=== PATIENT | male | born 1950 | race Caucasian/White ===

== ENCOUNTER → 2017-01-23 | Day surgery (SDC) | payer MEDICARE ==
[~2017-01-23] MED LIST: LACTATED RINGER'S 1000 ML INJ 1,000 ML ONE; PROPOFOL 200 MG/20 ML AMP IV ONE
--- NOTE | 2017-01-23 15:34 | GIPROC ---
[facility] [address] [facility], [address] EGD PROCEDURE REPORT EXAM DATE: 01/23/2017 PATIENT NAME: Fermín Lloyd MR #: [id number] BIRTHDATE: 1950 ATTENDING: Arcelia Smith MD ORDER #: [id number] FRONT DESK TEAM MEMBER: Kristi Mtz RN STATUS: outpatient INDICATIONS: The patient is a 66 yr old male here for an EGD due to obesity clearence for gastric bypass PROCEDURE PERFORMED: EGD w/ biopsy MEDICATIONS: None and Per Anesthesia. TOPICAL ANESTHETIC: none CONSENT: The patient understands the risks and benefits of the procedure and understands that these risks include, but are not limited to: sedation, allergic reaction, infection, perforation and/or bleeding. Alternative means of evaluation and treatment include, among others: physical exam, x-rays, and/or surgical intervention. The patient elects to proceed with this endoscopic procedure. medical equipment was checked for proper function. Hand hygiene and appropriate measures for infection prevention was taken. After the risks, benefits and alternatives of the procedure were thoroughly explained, Informed consent was verified, confirmed and timeout was successfully executed by the treatment team. The patient was anesthetized with topical anesthesia and the EC-[id number] ([id number]) and [id number] ([id number]) endoscope was introduced through the mouth and advanced to the second portion of the duodenum. Retroflexed views revealed a hiatal hernia The gastroscope was then slowly withdrawn and removed. Duodenitis /duodenla bulb-biopsy gastritis antrum-biopsy esophagitis distal esophagus -biopsy. ADVERSE EVENTS: There were no complications. IMPRESSIONS: 1. Duodenitis /duodenla bulb-biopsy gastritis antrum-biopsy esophagitis distal esophagus -biopsy 2. Retroflexed views revealed a hiatal hernia RECOMMENDATIONS: 1. Await biopsy results. Biopsy results will not be ready for 7-10 days. If you don't hear from us in two weeks, call our office for biopsy results. 2. Anti-reflux regimen 3. Continue PPI 4. Avoid NSAIDS 5. Ok for surgery from gi point PATIENT CONDITION: stable DISPOSITION: Home REPEAT EXAM: EGD pending biopsy results Arcelia Smith MD eSigned: Arcelia Smith MD 01/23/2017 3:34 PM cc: Rashida Holt [facility] Carol Mejia M.D. PATIENT NAME: Fermín Lloyd MR#: [id number]
== END | disposition home or self-care (01) ==
LOC: ESDC 11:35
PROVIDERS: ATTEND Internal Medicine Gastroenterology
DX: K29.70 Gastritis, unspecified, without bleeding (principal); K29.80 Duodenitis without bleeding; K44.9 Diaphragmatic hernia without obstruction or gangrene; K20.9 Esophagitis, unspecified
CPT/HCPCS: 00740; 43239; 88305; 88312; J3010; J7120

== ENCOUNTER 2017-04-01 07:30 | Inpatient (IN) | payer MEDICARE ==
[~2017-04-01] VITALS: Ht 182.9 cm; Wt 140.4 kg
[2017-04-01] MEDS ORDERED: ASPI-516 CHEW (09:20)
[2017-04-01] MEDS ORDERED: ATOR20TA15 PO (09:20)
[2017-04-01] MEDS ORDERED: FERR325T18 PO (09:20)
[2017-04-01] MEDS ORDERED: CANA100T PO (09:20)
[2017-04-01] MEDS ORDERED: LISI-515 PO (09:20)
[2017-04-01] MEDS ORDERED: FLUO40CA PO (09:20)
[2017-04-01] MEDS ORDERED: DIVA500T PO (09:20)
[2017-04-01] MEDS ORDERED: PANT40TA3 PO (09:20)
[2017-04-01] MEDS ORDERED: MECL-62 PO (09:20)
[2017-04-01] MEDS ORDERED: CYAN100025 SL (09:20)
[2017-04-01] MEDS ORDERED: METF1000 PO (09:20)
[2017-04-01] MEDS ORDERED: ZOFR4TAB PO (09:20)
[2017-04-01] MEDS ORDERED: BUPIVACAINE/EPINEPHRINE 0.25% PF 30 ML VIAL ONE (09:31)
[2017-04-01] MEDS ORDERED: SCOPOLAMINE 1.5 MG PATCH ONE (09:48)
[2017-04-01] MEDS ORDERED: APREPITANT 40 MG CAP ONE (09:49)
[2017-04-01] MEDS ORDERED: ONDANSETRON HCL 4 MG/2 ML VIAL ONE (09:49)
[2017-04-01] MEDS ORDERED: metroNIDAZOLE 500 MG INJ 100 ML IV ONE (09:49)
[2017-04-01] MEDS ORDERED: ACETAMINOPHEN 1000 MG/100 ML 100 ML IV ONE (09:49)
[2017-04-01] MEDS ORDERED: ceFAZolin 2 GM PREMIX 50 ML IV SCH (10:00)
[2017-04-01] MEDS ORDERED: APREPITANT 40 MG CAP PO SCH (10:00)
[2017-04-01] MEDS ORDERED: CHLORHEXIDINE GLUCONATE 2 % 1 PACK (2 CLOTHS) TOPICAL PRN (10:00)
[2017-04-01] MEDS ORDERED: LACTATED RINGER'S 1000 ML IV PRN (10:00)
[2017-04-01] MEDS ORDERED: ACETAMINOPHEN 1000 MG/100 ML 100 ML IV SCH (10:00)
[2017-04-01] MEDS ORDERED: INSULIN HUMAN REGULAR 1,000 UNITS/10 ML VIAL SQ PRN (10:00)
[2017-04-01] MEDS ORDERED: METOPROLOL TARTRATE 25 MG TAB PO PRN (10:00)
[2017-04-01] MEDS ORDERED: POVIDONE IODINE 5% (ANTISEPSIS KIT) 4 APPLICATIONS EACH NARE PRN (10:00)
[2017-04-01] MEDS ORDERED: SCOPOLAMINE 1.5 MG PATCH T-DERMAL SCH (10:00)
[2017-04-01] MEDS ORDERED: SODIUM CHLORID 0.9% 500 ML IV PRN (10:00)
[2017-04-01] MEDS ORDERED: metroNIDAZOLE 500 MG INJ 100 ML IV SCH (10:00)
[2017-04-01] MEDS ORDERED: ONDANSETRON HCL 4 MG/2 ML VIAL IV PUSH SCH (10:00)
[2017-04-01] MEDS ORDERED: DO NOT ADM ANY ANTICOAGULANT DRUGS PRN (14:45)
[2017-04-01] MEDS ORDERED: *morphine SULFATE 8 MG/ML PERIprocedure ONLY ONE (15:01)
[2017-04-01] MEDS ORDERED: MORPHINE SULFATE 30 MG/30 ML PCA IV SCH (15:15)
[2017-04-01] MEDS ORDERED: GLUCAGON 1 MG/ML VIAL OTHER PRN (15:15)
[2017-04-01] MEDS ORDERED: NALOXONE HCL 0.4 MG/ML AMP IV PUSH PRN (15:15)
[2017-04-01] MEDS ORDERED: diphenhydrAMINE HCL 50 MG/ML VIAL IV PUSH PRN (15:15)
[2017-04-01] MEDS ORDERED: Post-op Orders (for Pharmacy) MISC OTHER ONE (15:15)
[2017-04-01] MEDS ORDERED: ENALAPRILAT 1.25 MG/ML VIAL IV PUSH PRN (15:15)
[2017-04-01] MEDS ORDERED: SODIUM CHLORIDE 0.9% FLUSH 10 ML FLUSH IV FLUSH PRN (15:15)
[2017-04-01] MEDS ORDERED: DEXTROSE 50% IN WATER 50 ML VIAL(D50) IV PUSH PRN (15:15)
[2017-04-01] MEDS ORDERED: ONDANSETRON HCL 4 MG/2 ML VIAL IV PUSH PRN (15:15)
[2017-04-01] MEDS ORDERED: ACETAMINOPHEN/HYDROcodone 325 MG/10 MG TAB PO PRN (15:15)
[2017-04-01] MEDS ORDERED: diphenhydrAMINE HCL ELIXIR 12.5 MG/5 ML CUP PO PRN (15:15)
[2017-04-01] MEDS: 1/2 NS + KCL 20 MEQ INJ 1,000 ML IV SCH (16:00)
[2017-04-01] MEDS ORDERED: ACETAMINOPHEN 325MG/HYDROcodone 7.5MG/15ML UDC PO PRN (16:30)
[2017-04-01] MEDS: RESP: ALBUTEROL 2.5 MG/3 ML NEB (SCH) INH (16:55)
[2017-04-01] MEDS: METOCLOPRAMIDE HCL 10 MG/2 ML VIAL IV PUSH SCH ×2 (16:55→22:02)
[2017-04-01] MEDS: INSULIN NovoLIN REGULAR SUPPLEMENTAL SCALE SQ SCH ×2 (17:00→21:45)
[2017-04-01 17:44] VITALS: BP 147/81; PULSE 101; RESP 20; TEMP 97.8; O2SAT 97
[2017-04-01] MEDS: ENOXAPARIN SODIUM 40 MG/0.4 ML SYRINGE SQ SCH (19:25)
[2017-04-01 20:00] VITALS: BP 107/59; PULSE 89; RESP 22; TEMP 97.7; O2SAT 95
[2017-04-01] MEDS: SODIUM CHLORIDE 0.9% FLUSH 10 ML FLUSH IV FLUSH SCH (21:06)
[2017-04-01] MEDS: PCA - TOTAL MG MORPHINE DELIVERED PER SHIFT SCH (22:01)
[2017-04-02] VITALS (9 sets, daily range): BP systolic 120–143; BP diastolic 59–79; PULSE 76–92; RESP 16–22; TEMP 97.4–98.6; O2SAT 93–96
[2017-04-02] MEDS: RESP: ALBUTEROL 2.5 MG/3 ML NEB (SCH) INH ×7 (00:40→23:57)
[2017-04-02] MEDS: METOCLOPRAMIDE HCL 10 MG/2 ML VIAL IV PUSH SCH ×2 (04:32→10:10)
[2017-04-02] MEDS: PCA - TOTAL MG MORPHINE DELIVERED PER SHIFT SCH (06:29)
[2017-04-02 07:53] LABS: AUTOMATED NEUTROPHIL # 10.8 TH/MM3 (1.8-7.7); BASOPHIL % 0.1 % (0.0-2.0); HEMATOCRIT 37.9 % (39.0-51.0); HEMO FLAGS DIFF FINAL; LYMPH % 6.7 % (9.0-44.0); LYMPHOCYTE # 0.9 TH/MM3 (1.0-4.8); MEAN CELL VOLUME 89.1 FL (80.0-100.0); MEAN CORPUSCULAR HEMOGLOBIN 29.5 PG (27.0-34.0); MEAN CORPUSCULAR HGB CONC 33.1 % (32.0-36.0); MONO % 8.4 % (0.0-8.0); NEUT % 84.8 % (16.0-70.0); PLATELET COUNT 179 TH/MM3 (150-450); RED BLOOD COUNT 4.25 MIL/MM3 (4.50-5.90); RED CELL DISTRIBUTION WIDTH 14.8 % (11.6-17.2); WHITE BLOOD COUNT 12.7 TH/MM3 (4.0-11.0)
[2017-04-02] MEDS: PANTOPRAZOLE SOD 40 MG DELAYED RELEASE TAB PO SCH (08:12)
[2017-04-02] MEDS: INSULIN NovoLIN REGULAR SUPPLEMENTAL SCALE SQ SCH ×4 (08:12→19:56)
[2017-04-02] MEDS: SODIUM CHLORIDE 0.9% FLUSH 10 ML FLUSH IV FLUSH SCH ×2 (08:14→19:56)
[2017-04-02] MEDS: 1/2 NS + KCL 20 MEQ INJ 1,000 ML IV SCH ×3 (08:15→21:52)
[2017-04-02 08:30] LABS: BICARBONATE 23.8 MEQ/L (21.0-32.0); MAGNESIUM 1.6 MG/DL (1.5-2.5); POTASSIUM 4.3 MEQ/L (3.5-5.1)
[2017-04-02] MEDS: DIVALPROEX DR 500 MG TABEC PO SCH (10:10)
[2017-04-02] MEDS: LISINOPRIL 20 MG TAB PO SCH ×2 (10:10→19:58)
[2017-04-02] MEDS: ACETAMINOPHEN 325MG/HYDROcodone 7.5MG/15ML UDC PO PRN ×3 (10:19→22:21)
--- NOTE | 2017-04-02 14:13 | HHI.PR ---
Subjective Subjective Notes Ambulating the halls Pain and nausea well controlled Tolerating PO fluids Objective Vitals/I&O Vital Signs Date Time Temp Pulse Resp B/P (MAP) Pulse Ox O2 Delivery O2 Flow Rate FiO2 04/02/17 12:00 97.9 76 18 122/61 (81) 93 04/02/17 09:25 21 04/02/17 08:10 Room Air 04/02/17 00:44 2.00 Labs Laboratory Tests Test 04/02/17 07:28 White Blood Count 12.7 Red Blood Count 4.25 Hemoglobin 12.5 Hematocrit 37.9 Mean Corpuscular Volume 89.1 Mean Corpuscular Hemoglobin 29.5 Mean Corpuscular Hemoglobin Concent 33.1 Red Cell Distribution Width 14.8 Platelet Count 179 Mean Platelet Volume 8.4 Neutrophils (%) (Auto) 84.8 Lymphocytes (%) (Auto) 6.7 Monocytes (%) (Auto) 8.4 Eosinophils (%) (Auto) 0.0 Basophils (%) (Auto) 0.1 Neutrophils # (Auto) 10.8 Lymphocytes # (Auto) 0.9 Monocytes # (Auto) 1.1 Eosinophils # (Auto) 0.0 Basophils # (Auto) 0.0 CBC Comment DIFF FINAL Differential Comment Blood Urea Nitrogen 17 Creatinine 0.96 Random Glucose 122 Calcium Level 8.3 Magnesium Level 1.6 Sodium Level 136 Potassium Level 4.3 Chloride Level 103 Carbon Dioxide Level 23.8 Anion Gap 9 Estimat Glomerular Filtration Rate 78 Lungs: Clear Abdomen: Post-op tenderness Extremities: Perfused Wound Wound : Wound Location: Abdomen Appearance: Clean & Dry A/P Assessment and Plan 66yo M POD#1 Laparoscopic RNY -Continue to increase fluids as tolerated -Continue with frequent ambulation -Restart home meds Discharge Planning D/C home tomorrow Fredo Ramos Apr 02, 2017 14:13
[2017-04-02] MEDS ORDERED: METOCLOPRAMIDE HCL 10 MG/2 ML VIAL IV PUSH PRN (15:15)
[2017-04-02] MEDS: ENOXAPARIN SODIUM 40 MG/0.4 ML SYRINGE SQ SCH (18:09)
[2017-04-02] MEDS ORDERED: ZOLPIDEM TARTRATE 10 MG TAB PO PRN (19:00)
[2017-04-03] VITALS: BP 111/60; PULSE 90; RESP 20; TEMP 98.1; O2SAT 94
[2017-04-03] MEDS: 1/2 NS + KCL 20 MEQ INJ 1,000 ML IV SCH ×2 (02:00→10:00)
[2017-04-03] MEDS: RESP: ALBUTEROL 2.5 MG/3 ML NEB (SCH) INH ×3 (03:17→11:44)
[2017-04-03 04:00] VITALS: BP 119/58; PULSE 87; RESP 20; TEMP 97.9; O2SAT 95
[2017-04-03] MEDS: ACETAMINOPHEN 325MG/HYDROcodone 7.5MG/15ML UDC PO PRN ×2 (06:02→12:08)
[2017-04-03] MEDS: INSULIN NovoLIN REGULAR SUPPLEMENTAL SCALE SQ SCH ×2 (07:59→12:00)
[2017-04-03 08:00] VITALS: BP 110/57; PULSE 92; RESP 18; TEMP 98.5; O2SAT 94
[2017-04-03] MEDS: LISINOPRIL 20 MG TAB PO SCH (08:04)
[2017-04-03] MEDS: DIVALPROEX DR 500 MG TABEC PO SCH (08:04)
[2017-04-03] MEDS: PANTOPRAZOLE SOD 40 MG DELAYED RELEASE TAB PO SCH (08:04)
[2017-04-03] MEDS: SODIUM CHLORIDE 0.9% FLUSH 10 ML FLUSH IV FLUSH SCH (08:05)
[2017-04-03 08:19] VITALS: O2SAT 98
[2017-04-03 12:00] VITALS: BP 120/62; PULSE 84; RESP 18; TEMP 98.3; O2SAT 95
--- NOTE | 2017-04-03 12:49 | HHI.PR ---
Subjective Subjective Notes Tolerating PO fluids No GI complaints Objective Vitals/I&O Vital Signs Date Time Temp Pulse Resp B/P (MAP) Pulse Ox O2 Delivery O2 Flow Rate FiO2 04/03/17 12:00 98.3 84 18 120/62 (81) 95 04/03/17 08:19 21 04/03/17 08:10 Blow By 04/02/17 00:44 2.00 Abdomen: Post-op tenderness Extremities: Perfused Wound Wound : Wound Location: Abdomen Appearance: Clean & Dry A/P Assessment and Plan 66yo M POD#2 Laparoscopic RNY -Continue to increase fluids as tolerated -Continue with frequent ambulation -Ok to use acetaminophen for pain control Discharge Planning D/C home today Fredo Ramos Apr 03, 2017 12:49
== END 2017-04-03 13:31 | disposition home or self-care (01) | DRG 621 ==
LOC: HSDI 08:14 → N07B 17:25
PROVIDERS: ADMIT Surgery; ATTEND Surgery
PROC: 0D164ZA Bypass Stomach to Jejunum, Percutaneous Endoscopic Approach (ICD-10-PCS; principal; 2017-04-01 12:15)
DX: E66.01 Morbid (severe) obesity due to excess calories (principal); E11.69 Type 2 diabetes mellitus with other specified complication; I10 Essential (primary) hypertension; F10.21 Alcohol dependence, in remission; Z68.41 Body mass index [BMI] 40.0-44.9, adult; Z79.84 Long term (current) use of oral hypoglycemic drugs; Z87.891 Personal history of nicotine dependence
CPT/HCPCS: 80048; 82948; 83735; 85025; 94150; 94640; 94664; J0131; J1650; J2270; J2405; J2765; J7120; J7613; J8501